=== PATIENT | female | born 1980 | race Caucasian/White ===

== ENCOUNTER 2021-01-31 05:55 | Inpatient (IN) ==
[2021-01-31] MEDS ORDERED: Lactated Ringers 1000 ml BAG 1,000 ML IV ONE (06:53)
[2021-01-31] MEDS ORDERED: Buffered Lidocaine 1% SYRIN 1 ml INTRADERM ONE (06:53)
[2021-01-31] MEDS ORDERED: Lactated Ringers 1000 ml BAG 1,000 ML IV SCH ×2 (07:00→11:00)
[2021-01-31 07:50] LABS: Rapid COVID-19 Molecular Undetected (Undetected)
[2021-01-31 08:29] LABS: Urine Benzodiazepine Screen None Detected (None Detect); Urine Cannabinoids Screen None Detected (None Detect); Urine Opiates Screen None Detected (None Detect)
[2021-01-31] MEDS ORDERED: Witch Hazel PAD JAR TOPICAL PRN (10:15)
[2021-01-31] MEDS ORDERED: Dibucaine 1% OINT 28.35 GM TUBE PR PRN (10:15)
[2021-01-31] MEDS ORDERED: Glycerin ADULT 2.4 gm SUPP PR PRN (10:15)
[2021-01-31] MEDS ORDERED: Oxytocin 10 UNITS/ML 1 ML VIAL IM ONE (10:15)
[2021-01-31] MEDS ORDERED: Lidocaine 1% VIAL 10 MG/ML VIAL ONE (14:37)
[2021-02-01 08:27] LABS: ABS Eosinophils 0.1 10^3/ul (0-0.6); ABS Lymphocytes 1.6 10^3/ul (1.0-4.8); ABS Monocytes 0.6 10^3/ul (0-0.8); ABS Neutrophils 6.3 10^3/ul (1.5-7.7); Hematocrit 30 % (35-47); Hemoglobin 10.6 g/dL (12.0-16.0); Lymphocyte % 18.9 %; Mean Corpuscular HGB Conc 36 g/dL (31-36); Mean Corpuscular Hemoglobin 34 pg (27-31); Mean Corpuscular Volume 94 fL (80-97); Mean Platelet Volume 9.8 fL (7.4-10.4); Platelet Count 148 10^3/uL (150-450); Red Blood Count 3.16 10^6 /uL (3.70-4.87); Red Cell Distribution Width 13 % (10-15); White Blood Count 8.7 10^3/uL (3.5-10.8)
[2021-02-01] MEDS ORDERED: Measles, Mumps,Rubella VACC 0.5 ML/VIAL SUBCUT ONE (09:00)
[2021-02-02 08:24] VITALS: BP 123/65
[2021-02-02] MEDS ORDERED: Measles, Mumps,Rubella VACC 0.5 ML/VIAL ONE (08:53)
== END 2021-02-02 13:11 | disposition home or self-care (01) | DRG 560 ==
LOC: MCHOBOUT 05:55 → MCHOB 06:33
PROVIDERS: ADMIT Obstetrics & Gynecology; ATTEND Obstetrics & Gynecology